=== PATIENT | female | born 1965 | race Caucasian/White ===

== ENCOUNTER 2019-06-11 09:32 | Emergency (ER) | payer OTHER ==
[2019-06-11 09:42] VITALS: BP 157/97; PULSE 79; TEMP 97.8; BMI 24.0
[2019-06-11] MEDS ORDERED: DIPHTH,PERTUSS(ACELL),TET 0.5 ML DISP.SYRIN IM ONE ×2 (10:11→10:12)
--- NOTE | 2019-06-11 10:15 | PDOC ---
History of Present Illness - General Chief Complaint: Bite Stated Complaint: DOG BITE Time Seen by Provider: 06/11/19 09:43 History Source: Patient Exam Limitations: No Limitations Past History - Travel Traveled outside of the country in the last 30 days: No Close contact w/someone who was outside of country & ill: No - Past Medical History Allergies/Adverse Reactions: Allergies Allergy/AdvReac Type Severity Reaction Status Date / Time No Known Allergies Allergy Verified 06/11/19 09:42 Home Medications: Ambulatory Orders Amoxicillin/Potassium Clav [Augmentin 875-125 Tablet] 1 each PO BID #14 tablet 06/11/19 COPD: No HTN: Yes (diet controlled) - Immunization History Immunization Up to Date: No - Psycho Social/Smoking Cessation Hx Smoking History: Never smoked Review of Systems - Review of Systems Able to Perform ROS?: Yes Comments:: 06/11/19 10:10 CONSTITUTIONAL: Absent: fever, chills, diaphoresis, generalized weakness, malaise, loss of appetite MUSCULOSKELETAL: Absent: myalgia, arthralgia, joint swelling SKIN: Present: dog bite Absent: rash, itching, pallor NEUROLOGIC: Absent: headache, focal weakness or paresthesias, dizziness, unsteady gait, seizure, mental status changes, bladder or bowel incontinence PSYCHIATRIC: Absent: anxiety, depression, suicidal or homicidal ideation, hallucinations. Is the patient limited Kyrgyz proficient: No *Physical Exam - Vital Signs Last Vital Signs Temp Pulse Resp BP Pulse Ox 97.8 F 79 18 157/97 97 06/11/19 09:39 06/11/19 09:39 06/11/19 09:39 06/11/19 09:39 06/11/19 09:39 - Physical Exam 06/11/19 10:11 GENERAL: The patient is awake, alert, and fully oriented, in no acute distress. HEAD: Normal with no signs of trauma. EYES: Pupils equal, round and reactive to light, extraocular movements intact, sclera anicteric, conjunctiva clear. EXTREMITIES: Normal range of motion, no edema. NEUROLOGICAL: Normal speech, normal gait. PSYCH: Normal mood, normal affect. SKIN: Multiple puncture wounds to the L and R foot with some mild erythema around the bites. Warm, Dry, normal turgor, no rashes or lesions noted. Medical Decision Making - Medical Decision Making 06/11/19 10:12 Patient is a 53-year-old female with past medical history of hypertension, who presents to the ER today for a dog bite. She states she was bit by her daughter 's dog on [address]. She states that the dog bit her feet over a piece of pizza. The dog is up-to-date on his rabies vaccinations. She states that she needs a tetanus shot and that the wounds look a little pink. Denies fevers, chills, numbness and tingling weakness the affected extremities. A/P: Dog bite On exam patient with multiple puncture wounds to the left and right foot with some surrounding erythema. We will treat with Augmentin to prevent cellulitis Tetanus shot was updated today. Patient does not meet criteria for rabies vaccination as it is a known dog with updated rabies vaccines Will discharge home I discussed the physical exam findings, ancillary test results and final diagnoses with the patient. I answered all of the patient's questions. The patient was satisfied with the care received and felt comfortable with the discharge plan and treatment plan. The Patient agrees to follow up with the primary care physician/specialist within 24-72 hours. Return precautions were given. Discharge - Discharge Information Problems reviewed: Yes Clinical Impression/Diagnosis: Dog bite Qualifiers: Encounter type: initial encounter Qualified Code(s): W54.0XXA - Bitten by dog, initial encounter Condition: Stable Disposition: HOME - Admission No - Follow up/Referral Referrals: Dominique Faye MD [Primary Care Provider] - - Patient Discharge Instructions Patient Printed Discharge Instructions: DI for Animal Bites Additional Instructions: You were evaluated for your dog bites. You do not need rabies vaccines as the dog is known to you and up-to-date on their rabies vaccines. Your tetanus shot was updated today. Please take the Augmentin twice a day for 1 week as directed. Please take it with food. Follow-up with your primary care doctor this week. Return to the ER for worsening pain, redness to the site or if you have any new or worsening symptoms. - Post Discharge Activity Work/Back to School Note: Back to Work
== END 2019-06-11 10:20 | disposition home or self-care (01) ==
LOC: JERFT 09:32
PROC: 3E0234Z Introduction of Serum, Toxoid and Vaccine into Muscle, Percutaneous Approach (ICD-10-PCS; principal; 2019-06-11)
DX: S91.352A Open bite, left foot, initial encounter (principal); S91.351A Open bite, right foot, initial encounter; W54.0XXA Bitten by dog, initial encounter; Y93.89 Activity, other specified; Y92.89 Other specified places as the place of occurrence of the external cause; Y99.8 Other external cause status
CPT/HCPCS: 90471; 90715; 99281-25

== ENCOUNTER 2020-01-12 07:02 | Emergency (ER) | payer OTHER ==
[2020-01-12 07:24] VITALS: BP 147/85; PULSE 80; TEMP 98.3; BMI 23.3
--- NOTE | 2020-01-12 07:38 | PDOC ---
Attending Attestation - Resident Resident Name: Ronan Pineda - HPI HPI: 01/14/20 12:33 Pt presents to the ED complaining of needle embedded in her R foot after stepping it. Patient was unable to remove it herself, so she presented to the ED. Denies other complaints or injuries. 01/14/20 12:45 - Physicial Exam PE: 01/14/20 12:50 Agree with resident exam. R foot has a black thread protruding from the plantar surface of the foot. No other deformities observed. No active bleeding. 01/14/20 13:06 - Medical Decision Making 01/14/20 13:08 Needle removed from foot under after making a <0.5 cm chris with a scalpel. Foot re-xrayed, showed complete removal of the foreign body. Will discharge home. Discharge - Discharge Information Problems reviewed: Yes Clinical Impression/Diagnosis: Foreign body (FB) in soft tissue Condition: Good Disposition: HOME - Additional Discharge Information Prescriptions: Ciprofloxacin [Cipro -] 500 mg PO Q12H 5 Days #10 tablet - Follow up/Referral Referrals: Dominique Faye MD [Primary Care Provider] - - Patient Discharge Instructions Patient Printed Discharge Instructions: DI for Laceration Repair Additional Instructions: You are here today for a stuck needle in the right foot. Please take care of your small wound. You can clean it normally with water or soap since the wound is so tiny and superficial. If the site becomes inflamed, swelling, red, painful, please come back. Keep the wound dry and clean. Please take antibiotic as prescribed for 5 days, twice a day. Please try to minimize the exercise for the next 7 days as one of the side effects of cipro antibiotics is weaken tendons. Take motrin or tylenol for pain. If you have any heart palpitation, heart pain, please come back to the ED. Please follow up with your PCP for further problems. - Post Discharge Activity
--- NOTE | 2020-01-12 08:21 | PDOC ---
History of Present Illness - General Stated Complaint: FOOT PAIN/NEEDLE STUCK - History of Present Illness Initial Comments: 01/12/20 08:14 54 F with HTN presented to the ED with "acute injury to the right foot". It happened this morning when she woke up barefeet. She stepped on the sewing needles. She tried to pull it out but couldn't. Denies F/C/N/V/D, chest pain, abdominal pain, dizziness. PMH: HTN PSH: none Med: none ALlergy: none SS: denies smoke, alcohol, drug PCP: Bridget ALCALA GENERAL/CONSTITUTIONAL: No fever or chills. No weakness. HEAD, EYES, EARS, NOSE AND THROAT: No change in vision. No ear pain or discharge. No sore throat. CARDIOVASCULAR: No chest pain or shortness of breath RESPIRATORY: No cough, wheezing, or hemoptysis. GASTROINTESTINAL: No nausea, vomiting, diarrhea or constipation. GENITOURINARY: No dysuria, frequency, or change in urination. MUSCULOSKELETAL: +right foot pain. No neck or back pain. SKIN: No rash NEUROLOGIC: No headache, vertigo, loss of consciousness, or change in strength/sensation. ENDOCRINE: No increased thirst. No abnormal weight change HEMATOLOGIC/LYMPHATIC: No anemia, easy bleeding, or history of blood clots. ALLERGIC/IMMUNOLOGIC: No hives or skin allergy. PE GENERAL: Awake, alert, and fully oriented, in no acute distress HEAD: No signs of trauma, normocephalic, atraumatic EYES: PERRLA, EOMI, sclera anicteric, conjunctiva clear ENT: Auricles normal inspection, hearing grossly normal, nares patent, oropharyn x clear without exudates. Moist mucosa NECK: Normal ROM, supple, no lymphadenopathy, JVD, or masses LUNGS: No distress, speaks full sentences, clear to auscultation bilaterally HEART: Regular rate and rhythm, normal S1 and S2, no murmurs, rubs or gallops, peripheral pulses normal and equal bilaterally. ABDOMEN: Soft, nontender, normoactive bowel sounds. No guarding, no rebound. No masses EXTREMITIES : Normal inspection, Normal range of motion, no edema. No clubbing or cyanosis. +Needle thread stuck out on the right foot. NEUROLOGICAL: Cranial nerves II through XII grossly intact. Normal speech, normal gait, no focal sensorimotor deficits SKIN: Warm, Dry, normal turgor, no rashes or lesions noted 01/12/20 09:26 Past History - Medical History Allergies/Adverse Reactions: Allergies Allergy/AdvReac Type Severity Reaction Status Date / Time No Known Allergies Allergy Verified 06/11/19 09:42 Home Medications: Ambulatory Orders Amoxicillin/Potassium Clav [Augmentin 875-125 Tablet] 1 each PO BID #14 tablet 06/11/19 Ciprofloxacin [Cipro -] 500 mg PO Q12H 5 Days #10 tablet 01/12/20 COPD: No HTN: Yes (diet controlled) - Reproductive History Is Patient Now?: No - Immunization History Immunization Up to Date: No - Psycho-Social/Smoking History Smoking History: Never smoked Have you smoked in the past 12 months: No Information on smoking cessation initiated: No - Substance Abuse Hx (Audit-C & DAST Scrn) How often the patient has a drink containing alcohol: Never Score: In Men: 4 or > Positive; In Women: 3 or > Positive: 0 Screen Result (Pos requires Nsg. Audit-10AR): Negative In the last yr the pt used illegal drug/Rx for NonMed reason: No Score: Yes response is considered Positive: 0 Screen Result (Positive result requires Nsg. DAST-10): Negative *Physical Exam - Vital Signs Last Vital Signs Temp Pulse Resp BP Pulse Ox 98.3 F 80 16 147/85 99 01/12/20 07:20 01/12/20 07:20 01/12/20 07:20 01/12/20 07:20 01/12/20 07:20 ED Treatment Course - RADIOLOGY Radiology Studies Ordered: Category Date Time Status FOOT-RIGHT [RAD] Stat Radiology 01/12/20 07:37 Ordered Medical Decision Making - Medical Decision Making 01/12/20 09:09 Patient came here with a needled stuck in her right foot. Xray was taken before and after the removal. LIdocaine was used to numb, a small chris on the skin was applied with a scalpel. Minimal bleeding. No complication. Patient is informed about wound care and antibiotic side effect. Please follow up with PCP. Tetanus is uptodate. 01/12/20 09:25 Discharge - Discharge Information Problems reviewed: Yes Clinical Impression/Diagnosis: Foreign body (FB) in soft tissue Condition: Good Disposition: HOME - Additional Discharge Information Prescriptions: Ciprofloxacin [Cipro -] 500 mg PO Q12H 5 Days #10 tablet - Follow up/Referral Referrals: Dominique Faye MD [Primary Care Provider] - - Patient Discharge Instructions Patient Printed Discharge Instructions: DI for Laceration Repair Additional Instructions: You are here today for a stuck needle in the right foot. Please take care of your small wound. You can clean it normally with water or soap since the wound is so tiny and superficial. If the site becomes inflamed, swelling, red, painful, please come back. Keep the wound dry and clean. Please take antibiotic as prescribed for 5 days, twice a day. Please try to minimize the exercise for the next 7 days as one of the side effects of cipro antibiotics is weaken tendons. Take motrin or tylenol for pain. If you have any heart palpitation, heart pain, please come back to the ED. Please follow up with your PCP for further problems. - Post Discharge Activity
== END 2020-01-12 09:25 | disposition home or self-care (01) ==
LOC: JER 07:02
DX: S90.851A Superficial foreign body, right foot, initial encounter (principal)
CPT/HCPCS: 73630-TC-RT-FY; 99283-25